=== PATIENT | female | born 1945 | race Two or more races ===

== ENCOUNTER → 2016-12-19 | Outpatient (CLI) | payer OTHER, MEDICAID ==
[~2016-12-19] MED LIST: ADENOSINE 65 MG in GIVE UN-DILUTED 0 ML IV ONE; ADENOSINE 90 MG/30 ML INJ IV ONE
== END | disposition home or self-care (01) ==
LOC: Rad HDHVI 08:14
PROVIDERS: ATTEND Internal Medicine Cardiovascular Disease
DX: I25.10 Atherosclerotic heart disease of native coronary artery without angina pectoris (principal); I10 Essential (primary) hypertension; E03.9 Hypothyroidism, unspecified; E78.5 Hyperlipidemia, unspecified; Z87.891 Personal history of nicotine dependence; Z82.49 Family history of ischemic heart disease and other diseases of the circulatory system
CPT/HCPCS: 78452; 93005; 96374; 96375; A9500; J0153

== ENCOUNTER → 2017-01-01 | Outpatient (CLI) | payer OTHER, MEDICAID | END | disposition home or self-care (01) | LOC: Rad HDHVI 08:05 | PROVIDERS: ATTEND Internal Medicine Cardiovascular Disease | DX: R07.9 Chest pain, unspecified (principal); R06.02 Shortness of breath | CPT/HCPCS: 93306 ==

== ENCOUNTER 2017-11-29 23:17 | Emergency (ER) | payer MEDICAID, OTHER ==
[~2017-11-29] VITALS: Ht 165.1 cm; Wt 77.1 kg
[2017-11-30 00:12] LABS: Urine Bacteria FEW /hpf (None Seen); Urine Blood Negative /uL (Negative); Urine Specific Gravity 1.004 (1.001-1.035); Urine WBC 9 /hpf (0 - 5)
[2017-11-30 00:13] LABS: Basophils # (auto) 0 uL; Basophils % (auto) 0.4 % (0.0-2.0); Eosinophils # (auto) 0.2 uL; Eosinophils % (auto) 2.2 % (0.0-7.0); Hemoglobin 14.9 g/dL (12.2-16.2); Lymphocytes # (auto) 4.9 uL; Lymphocytes % (auto) 50.9 % (10.0-50.0); Mean Corpuscular Hemoglobin 28.7 pg (28.0-32.0); Mean Corpuscular Hgb Conc. 33.9 g/dL (32.0-36.0); Mean Corpuscular Volume 84.9 fL (80.0-100.0); Monocytes # (auto) 0.6 uL; Monocytes % (auto) 6.1 % (0.0-12.0); Neutrophils # (auto) 3.9 uL; Neutrophils % (auto) 40.4 % (37.0-80.0); Nucleated Red Blood Cells % 0.1 %; Platelet Count (auto) 307 10^3/uL (140-450); Red Blood Cells 5.19 10^6/uL (4.0-5.20); Red Cell Distribution Width 13.8 % (11.8-14.3); White Blood Cell 9.6 10^3/uL (4.4-10.8)
[2017-11-30 00:24] LABS: Albumin 3.6 g/dL (3.4-5.0); BUN/Creatinine Ratio 12.9; Calcium 8.5 mg/dL (8.5-10.1); Potassium 3.7 mmol/L (3.5-5.1)
[2017-11-30 00:27] LABS: Bilirubin, Total 0.6 mg/dL (0.2-1.0); Total Protein 8.3 g/dL (6.4-8.2)
[2017-11-30] MEDS ORDERED: metroNIDAZOLE 500MG/100ML 100 ML IV ONE (04:00)
[2017-11-30] MEDS ORDERED: ONDANSETRON HCL 4 MG/2 ML VIAL IV ONE (04:00)
[2017-11-30] MEDS ORDERED: CIPROFLOXACIN 400MG/200ML 200 ML IV ONE (04:00)
[2017-11-30] MEDS ORDERED: PANTOPRAZOLE 40 MG/10 ML VIAL IV ONE (04:00)
[2017-11-30] MEDS ORDERED: fentaNYL CITRATE 100 MCG/2 ML VL IV ONE (04:45)
[2017-11-30] MEDS ORDERED: SODIUM CHLORIDE 0.9% 1,000 ML IV ONE (04:45)
[2017-11-30] MEDS ORDERED: HYDROcodone-ACET 10/325MG TAB PO ONE (06:15)
[2017-11-30 06:43] VITALS: BP 159/77
== END 2017-11-30 07:57 | disposition home or self-care (01) ==
LOC: ER 23:24
DX: K57.92 Diverticulitis of intestine, part unspecified, without perforation or abscess without bleeding (principal); N39.0 Urinary tract infection, site not specified; I10 Essential (primary) hypertension; E07.9 Disorder of thyroid, unspecified
CPT/HCPCS: 36415; 74176; 80053; 81001; 85025; 96365; 96367; 96375; 99285; C9113; J0744; J2405; J3010; J3490; J7030

== ENCOUNTER → 2019-08-24 | Emergency (ER) | payer OTHER, MEDICAID ==
[~2019-08-24] VITALS: Ht 165.1 cm; Wt 77.1 kg
[2019-08-24 14:19] VITALS: BP 180/90
[2019-08-24 14:34] LABS: Basophils # (auto) 0 10 ^3/uL (0-0.2); Basophils % (auto) 0.3 % (0.0-2.0); Eosinophils # (auto) 0.1 10 ^3/uL (0-0.8); Eosinophils % (auto) 1.6 % (0.0-7.0); Hematocrit 42.9 % (36.0-46.0); Hemoglobin 14.2 g/dL (12.2-16.2); Lymphocytes # (auto) 2.3 10 ^3/uL (0.4-5.4); Lymphocytes % (auto) 28.8 % (10.0-50.0); Mean Corpuscular Hgb Conc. 33.1 g/dL (32.0-36.0); Mean Corpuscular Volume 87.5 fL (80.0-100.0); Monocytes # (auto) 0.5 10 ^3/uL (0-1.3); Monocytes % (auto) 6.1 % (0.0-12.0); Neutrophils # (auto) 5.1 10 ^3/uL (1.6-8.6); Neutrophils % (auto) 63.2 % (37.0-80.0); Nucleated Red Blood Cells % 0.2 %; Platelet Count (auto) 294 10^3/uL (140-450)
[2019-08-24 14:39] LABS: Urine Bacteria FEW /hpf (None Seen); Urine Blood Negative /uL (Negative); Urine Specific Gravity 1.003 (1.001-1.035); Urine WBC 1 /hpf (0 - 5)
[2019-08-24 14:50] LABS: Albumin 3.6 g/dL (3.4-5.0); Anion Gap 6 (5-15); Blood Urea Nitrogen 10 mg/dL (7-18); Calcium 8.8 mg/dL (8.5-10.1); Carbon Dioxide 27 mmol/L (21-32); Chloride 104 mmol/L (98-107); Glucose 106 mg/dL (74-106); Magnesium 2.6 mg/dL (1.6-2.6); Potassium 3.6 mmol/L (3.5-5.1); Sodium 137 mmol/L (136-145)
[2019-08-24 14:56] LABS: Alanine Aminotransferase 18 U/L (13-56); Alkaline Phosphatase 121 U/L (45-117); Aspartate Aminotransferase 19 U/L (15-37); BUN/Creatinine Ratio 14.1; Bilirubin, Total 0.3 mg/dL (0.2-1.0); GFR African American 103 mL/min; GFR Non-African American 86 mL/min; Total Protein 7.9 g/dL (6.4-8.2)
== END | disposition home or self-care (01) ==
LOC: ER 10:58
DX: H81.13 Benign paroxysmal vertigo, bilateral (principal); H66.92 Otitis media, unspecified, left ear; E11.9 Type 2 diabetes mellitus without complications; I10 Essential (primary) hypertension
CPT/HCPCS: 36415; 70450; 71045; 80053; 81001; 83735; 84484; 85025; 93005

== ENCOUNTER → 2022-09-18 | Outpatient (CLI) | payer OTHER, MEDICAID | END | disposition home or self-care (01) | LOC: LAB 08:30 | PROVIDERS: ATTEND Internal Medicine | DX: E11.9 Type 2 diabetes mellitus without complications (principal); E78.5 Hyperlipidemia, unspecified; G62.9 Polyneuropathy, unspecified; E03.9 Hypothyroidism, unspecified | CPT/HCPCS: 36415; 84443 ==

== ENCOUNTER → 2023-02-26 | Outpatient (CLI) | payer OTHER, MEDICAID | END | disposition home or self-care (01) | LOC: LAB 07:18 | PROVIDERS: ATTEND Internal Medicine | DX: E11.9 Type 2 diabetes mellitus without complications (principal); E03.9 Hypothyroidism, unspecified | CPT/HCPCS: 36415; 83036; 84443 ==

== ENCOUNTER 2023-03-03 21:54 | Emergency (ER) | payer OTHER, MEDICAID ==
[~2023-03-03] VITALS: Ht 157.5 cm; Wt 76.6 kg
[2023-03-03 22:55] LABS: Basophils # (auto) 0 10 ^3/uL (0-0.2); Basophils % (auto) 0.4 % (0.0-2.0); Eosinophils # (auto) 0.2 10 ^3/uL (0-0.8); Eosinophils % (auto) 2.1 % (0.0-7.0); Hematocrit 39.1 % (36.0-46.0); Hemoglobin 13.3 g/dL (12.2-16.2); Lymphocytes # (auto) 3.4 10 ^3/uL (0.4-5.4); Lymphocytes % (auto) 40.3 % (10.0-50.0); Mean Corpuscular Hemoglobin 28.9 pg (28.0-32.0); Mean Corpuscular Hgb Conc. 33.9 g/dL (32.0-36.0); Mean Corpuscular Volume 85.3 fL (80.0-100.0); Monocytes # (auto) 0.6 10 ^3/uL (0-1.3); Monocytes % (auto) 6.7 % (0.0-12.0); Neutrophils # (auto) 4.2 10 ^3/uL (1.6-8.6); Neutrophils % (auto) 50.5 % (37.0-80.0); Red Blood Cells 4.58 10^6/uL (4.0-5.20); Red Cell Distribution Width 13.5 % (11.8-14.3); White Blood Cell 8.3 10^3/uL (4.4-10.8)
[2023-03-03 23:09] LABS: Alanine Aminotransferase 18 U/L (7-40); Albumin 4.2 g/dL (3.2-4.8); Alkaline Phosphatase 122 U/L (46-116); Anion Gap 11 (5-15); Aspartate Aminotransferase 16 U/L (13-40); Blood Urea Nitrogen 5 mg/dL (9-23); Carbon Dioxide 24 mmol/L (20-30); Chloride 100 mmol/L (98-107); Glucose 133 mg/dL (74-106); Magnesium 1.9 mg/dL (1.6-2.6); Potassium 3.3 mmol/L (3.5-5.1); Sodium 135 mmol/L (136-145)
[2023-03-03 23:10] LABS: Bilirubin, Total 0.3 mg/dL (0.2-1.0); Total Protein 6.8 g/dL (5.7-8.2)
[2023-03-03 23:37] LABS: Urine Bacteria NONE SEEN /hpf (None Seen); Urine Blood Negative /uL (Negative); Urine Clarity Clear (Clear); Urine Color Colorless (Yellow); Urine Protein, UAD Negative (Negative); Urine Specific Gravity 1.008 (1.001-1.035); Urine Urobilinogen Normal (Negative); Urine WBC 2 /hpf (0 - 5)
[2023-03-03 23:42] VITALS: O2SAT 95
[2023-03-04] MEDS ORDERED: MECLIZINE HCL 25 MG TAB PO ONE
[2023-03-04 00:46] VITALS: BP 157/76; RESP 17; TEMP 97.9
[2023-03-04] MEDS ORDERED: POTASSIUM CHL 20 Meq TABLET PO ONE (01:45)
[2023-03-04] MEDS ORDERED: MECL1TAB42 PO (01:59)
[2023-03-04 02:07] VITALS: PULSE 56
== END 2023-03-04 02:14 | disposition home or self-care (01) ==
LOC: ER 21:54
DX: I10 Essential (primary) hypertension (principal); H81.13 Benign paroxysmal vertigo, bilateral; E11.9 Type 2 diabetes mellitus without complications; Z85.9 Personal history of malignant neoplasm, unspecified; Z98.890 Other specified postprocedural states
CPT/HCPCS: 36415; 70450; 80053; 81001; 83735; 84484; 85025; 93005; 99285; J8597

== ENCOUNTER → 2023-03-26 | Outpatient (CLI) | payer OTHER, MEDICAID ==
[~2023-03-26] MED LIST changes: -ADENOSINE 65 MG in GIVE UN-DILUTED 0 ML IV ONE; -ADENOSINE 90 MG/30 ML INJ IV ONE; +MECL1TAB42 PO
== END | disposition home or self-care (01) ==
LOC: XYW 08:04
PROVIDERS: ATTEND Internal Medicine
DX: G45.9 Transient cerebral ischemic attack, unspecified (principal)
CPT/HCPCS: 93306

== ENCOUNTER 2023-04-07 11:35 | Emergency (ER) | payer OTHER, MEDICAID ==
[~2023-04-07] VITALS: Ht 157.5 cm; Wt 75.3 kg
[2023-04-07 13:53] LABS: Urine Bacteria FEW /hpf (None Seen); Urine Blood TRACE /uL (Negative); Urine Clarity Clear (Clear); Urine Protein, UAD TRACE (Negative); Urine Specific Gravity 1.011 (1.001-1.035); Urine Urobilinogen Normal (Negative); Urine WBC 121 /hpf (0 - 5); Urine pH 6.5 (5.0-8.0)
[2023-04-07 13:57] LABS: Urine Color Yellow (Yellow)
[2023-04-07] MEDS ORDERED: cefTRIAXone W LIDOCAINE 1 GM IM IM ONE (14:15)
[2023-04-07] MEDS ORDERED: NITR-87 PO (14:20)
[2023-04-07] MEDS ORDERED: PHEN-1044 PO (14:20)
[2023-04-07] MEDS ORDERED: cefTRIAXone SOD 1,000 MG VL IM ONE (14:45)
[2023-04-07] MEDS ORDERED: LIDOCAINE 1% HCL (LOCAL ANESTH.) INJ 20ML MDV ONE (14:52)
[2023-04-07 14:59] VITALS: BP 133/69; PULSE 80; RESP 17; TEMP 98.4; O2SAT 95
== END 2023-04-07 15:08 | disposition home or self-care (01) ==
LOC: ER 11:35
DX: N30.00 Acute cystitis without hematuria (principal); I10 Essential (primary) hypertension; E11.9 Type 2 diabetes mellitus without complications; Z85.9 Personal history of malignant neoplasm, unspecified; Z79.899 Other long term (current) drug therapy
CPT/HCPCS: 81001; 96372; 99283; J0696; J2001

== ENCOUNTER 2023-10-01 20:07 | Inpatient (IN) | payer OTHER, MEDICAID ==
[~2023-10-01] VITALS: Ht 157.5 cm; Wt 79.9 kg
[~2023-10-01 20:07] MED LIST changes: +NITR-87 PO; +PHEN-1044 PO
[2023-10-01] MEDS: MECLIZINE HCL 25 MG TAB PO ONE (21:30)
[2023-10-01] MEDS: InsuLIN REG 1unit/0.01ml Soln (100units/ml) SC SCH (22:00)
[2023-10-01 22:36] LABS: Basophils # (auto) 0 10 ^3/uL (0-0.2); Basophils % (auto) 0.2 % (0.0-2.0); Eosinophils # (auto) 0.1 10 ^3/uL (0-0.8); Eosinophils % (auto) 1.1 % (0.0-7.0); Hematocrit 37.4 % (36.0-46.0); Hemoglobin 12.9 g/dL (12.2-16.2); Lymphocytes # (auto) 2.4 10 ^3/uL (0.4-5.4); Lymphocytes % (auto) 21.3 % (10.0-50.0); Mean Corpuscular Hemoglobin 29.3 pg (28.0-32.0); Mean Corpuscular Hgb Conc. 34.6 g/dL (32.0-36.0); Mean Corpuscular Volume 84.8 fL (80.0-100.0); Monocytes # (auto) 0.7 10 ^3/uL (0-1.3); Monocytes % (auto) 6.2 % (0.0-12.0); Neutrophils # (auto) 8.2 10 ^3/uL (1.6-8.6); Neutrophils % (auto) 71.2 % (37.0-80.0); Nucleated Red Blood Cells % 0.1 %; Red Blood Cells 4.41 10^6/uL (4.0-5.20); Red Cell Distribution Width 13.8 % (11.8-14.3); White Blood Cell 11.5 10^3/uL (4.4-10.8)
[2023-10-01 22:41] LABS: Alanine Aminotransferase 16 U/L (7-40); Alkaline Phosphatase 113 U/L (46-116); Anion Gap 9 (5-15); Aspartate Aminotransferase 15 U/L (13-40); Bilirubin, Total 0.3 mg/dL (0.2-1.0); Calcium 9.4 mg/dL (8.7-10.4); Carbon Dioxide 25 mmol/L (20-30); Chloride 98 mmol/L (98-107); Glucose 132 mg/dL (74-106); Potassium 3.3 mmol/L (3.5-5.1); Sodium 132 mmol/L (136-145); Total Protein 6.7 g/dL (5.7-8.2)
[2023-10-01 23:02] LABS: BUN/Creatinine Ratio 11.3 (10.0-20.0); Blood Urea Nitrogen 9 mg/dL (9-23)
[2023-10-02 00:19] LABS: Urine Bacteria None Seen /hpf (None Seen)
[2023-10-02 00:23] LABS: Urine Blood Negative /uL (Negative); Urine Clarity Turbid (Clear); Urine Color Light-Yellow (Yellow); Urine Hyaline Cast MOD /lpf (0 - 2); Urine Mucus FEW (None Seen); Urine Protein, UAD Negative (Negative); Urine Specific Gravity 1.015 (1.001-1.035); Urine Urobilinogen Normal (Negative); Urine WBC 22 /hpf (0 - 5); Urine pH 5.5 (5.0-9.0)
[2023-10-02] MEDS ORDERED: POTASSIUM EFFERVESENT TAB 25 MEQ PO ONE (01:45)
[2023-10-02] MEDS ORDERED: SULFAMETHOX W/TRIMETH(800/160MG) DS TAB PO ONE (01:45)
[2023-10-02] MEDS: POTASSIUM CHL 20MEQ/100ML 100 ML IV SCH (01:45)
[2023-10-02] MEDS ORDERED: ONDANSETRON HCL 4 MG/2 ML VIAL IV PRN (04:00)
[2023-10-02] MEDS: IOHEXOL 350 MG/ML 100ML IJ ONE (05:05)
[2023-10-02] MEDS: cefTRIAXone 1GM/50ML D5W 50 ML IV ONE ×2 (06:45→06:46)
[2023-10-02] MEDS: SODIUM CHLORIDE 0.9% 1,000 ML IV ONE (06:45)
[2023-10-02] MEDS: ACETAMINOPHEN/CODEINE#3 (300/30mg) TAB PO ONE (06:47)
[2023-10-02] MEDS: ONDANSETRON ODT 4 MG TAB PO ONE (06:48)
[2023-10-02 07:23] LABS: Rapid Influenza A Negative (Negative); Rapid Influenza B Negative (Negative)
[2023-10-02 07:25] LABS: COVID19 ANTIGEN SOFIA FIA NEGATIVE (NEGATIVE)
[2023-10-02] MEDS ORDERED: LISI40TA16 PO (09:37)
[2023-10-02] MEDS ORDERED: ERGO1CAP12 PO (09:37)
[2023-10-02] MEDS ORDERED: ASPI81CH59 PO (09:37)
[2023-10-02] MEDS ORDERED: ANAS1TAB7 PO (09:37)
[2023-10-02] MEDS ORDERED: HYDR25TA5 PO (09:37)
[2023-10-02] MEDS: cefTRIAXone 1GM/50ML D5W 50 ML IV SCH (10:14)
[2023-10-02 10:26] VITALS: PULSE 75; RESP 19; O2SAT 97
[2023-10-02] MEDS: LISINOPRIL 20 MG TAB PO SCH (10:52)
[2023-10-02] MEDS: ENOXAPARIN SOD 40 MG/0.4 ML SYRINGE SC SCH (10:54)
[2023-10-02] MEDS ORDERED: DEXTROSE (50%) 50ML SYRG IV PRN (11:30)
[2023-10-02] MEDS: InsuLIN REG 1unit/0.01ml Soln (100units/ml) SC SCH (11:30)
[2023-10-02] MEDS: ACCU-CHEK COMFORT CURVE STRIP VI SCH (11:30)
[2023-10-02 13:00] VITALS: BP 139/57; PULSE 85; RESP 18; TEMP 97.8; O2SAT 98
[2023-10-02] MEDS: POTASSIUM CHL 20 Meq TABLET PO ONE (13:56)
[2023-10-02 17:02] VITALS: BP 159/55; PULSE 66; RESP 18; TEMP 97.9; O2SAT 95
[2023-10-02 20:17] VITALS: PULSE 74; RESP 18; O2SAT 92
[2023-10-02 21:00] VITALS: BP 123/67; PULSE 86; RESP 20; TEMP 98.3; O2SAT 92
[2023-10-03] VITALS (8 sets, daily range): BP systolic 120–146; BP diastolic 69–92; PULSE 60–87; RESP 17–21; TEMP 97.8–98.4; O2SAT 76–97
[2023-10-03 07:13] LABS: Anion Gap 5 (5-15); Carbon Dioxide 27 mmol/L (20-30); Chloride 106 mmol/L (98-107); Potassium 3.7 mmol/L (3.5-5.1); Sodium 138 mmol/L (136-145)
[2023-10-03 07:14] LABS: Calcium 9.1 mg/dL (8.7-10.4)
[2023-10-03 07:19] LABS: BUN/Creatinine Ratio 13.2 (10.0-20.0); Blood Urea Nitrogen 9 mg/dL (9-23); Glucose 109 mg/dL (74-106)
[2023-10-03] MEDS: MECLIZINE HCL 25 MG TAB PO PRN (11:56)
[2023-10-03] MEDS: ACETAMINOPHEN 325 MG TAB PO PRN (21:11)
[2023-10-04 01:00] VITALS: BP 107/59; PULSE 56; RESP 17; TEMP 98.4; O2SAT 94
[2023-10-04 05:00] VITALS: BP 130/71; PULSE 66; RESP 17; TEMP 98.5; O2SAT 94
[2023-10-04 08:00] VITALS: PULSE 68; RESP 18; O2SAT 95
[2023-10-04 08:10] VITALS: BP 132/79; PULSE 69; RESP 18; TEMP 98.6; O2SAT 95
[2023-10-04 12:10] VITALS: BP 147/84; PULSE 72; RESP 20; TEMP 98.6; O2SAT 97
[2023-10-04] MEDS ORDERED: POLYETHYLENE GLYCOL 17 GM PWDR PO PRN (12:30)
[2023-10-04] MEDS ORDERED: HYDROcodone-ACET 5/325MG TAB PO PRN (12:30)
[2023-10-04] MEDS ORDERED: LORazepam 2MG/ML-1ML VIAL IV ONE (12:30)
[2023-10-04] MEDS ORDERED: LEVO500T91 PO (13:15)
[2023-10-04 14:25] VITALS: BP 147/84; PULSE 72; RESP 20; TEMP 98.6; O2SAT 97
== END 2023-10-04 15:30 | disposition home or self-care (01) | DRG 690 ==
LOC: ER 20:07 → OVERFLOW 10-02 04:00 → ER 10-02 04:00 → WEST WING 10-02 08:28
PROVIDERS: ADMIT Nurse Practitioner; ATTEND Internal Medicine
DX: N30.00 Acute cystitis without hematuria (principal); R53.1 Weakness; Z20.822 Contact with and (suspected) exposure to COVID-19; E11.9 Type 2 diabetes mellitus without complications; I10 Essential (primary) hypertension; R91.1 Solitary pulmonary nodule; Z83.3 Family history of diabetes mellitus; Z82.49 Family history of ischemic heart disease and other diseases of the circulatory system; Z85.3 Personal history of malignant neoplasm of breast
CPT/HCPCS: 36415; 70450; 71275; 76536; 80048; 80053; 81001; 82962; 83880; 84484; 85025; 85379; 87086; 87426; 87804; 93005; 96365; G0378; J1815

== ENCOUNTER → 2023-10-29 | Outpatient (CLI) | payer OTHER, MEDICAID ==
[~2023-10-29] MED LIST changes: +ANAS1TAB7 PO; +ASPI81CH59 PO; +ERGO1CAP12 PO; +HYDR25TA5 PO; +LEVO500T91 PO; +LISI40TA16 PO; -NITR-87 PO; -PHEN-1044 PO
[2023-10-29 10:11] LABS: Triglycerides 194 mg/dL (< 150)
[2023-10-29 10:12] LABS: Cholesterol 153 mg/dL (< 200); LDL Cholesterol 72 mg/dL (< 100)
[2023-10-29 10:13] LABS: HDL Cholesterol 50 mg/dL (40-59)
== END | disposition home or self-care (01) ==
LOC: LAB 08:09
PROVIDERS: ATTEND Internal Medicine
DX: E11.9 Type 2 diabetes mellitus without complications (principal)
CPT/HCPCS: 36415; 80061; 83036